=== PATIENT | female | born 1985 | race African-American/Black ===

== ENCOUNTER → 2024-11-05 | Day surgery (SDC) | payer OTHER ==
[~2024-11-05] MED LIST: BLACK SEED OIL PO; CELEBREX200 MG PO; CYMBALTA30 MG PO; FENTANYL CITRATE/PF 100MCG/2 ML INJ ONE; GLUCAGON FOR INJ 1 MG VIAL ONE; GLYCOPYRROLATE INJ 0.2 MG/ML VIAL ONE; LEVOCETIRIZINE D5 MG PO; LIDOCAINE HCL 2% LOCAL INJ 5 ML SDV VIAL INJ ONE; MIDAZOLAM HCL 2 MG/2 ML VIAL ONE; MONTELUKAST SOD10 MG PO; MULTI-VITAMIN1 EACH PO; ONDANSETRON ODT4 MG PO; OREGANO OIL 501 EACH PO; PANTOPRAZOLE SO40 MG PO; PROPOFOL IV EMULSION 10 MG/ML 20 ML VIAL ONE; SAVELLA50 MG PO; TIZANIDINE HCL4 MG PO
[2024-11-05] MEDS: LACTATED RINGER'S 1,000 ML ONE (12:59)
[2024-11-05 14:22] VITALS: TEMP 97.6
[2024-11-05 14:50] VITALS: BP 138/78; PULSE 90; RESP 16; O2SAT 100
== END | disposition home or self-care (01) ==
LOC: OR 12:03
PROVIDERS: ATTEND Internal Medicine Gastroenterology
DX: K21.9 Gastro-esophageal reflux disease without esophagitis (principal); D12.4 Benign neoplasm of descending colon; K29.70 Gastritis, unspecified, without bleeding; K58.9 Irritable bowel syndrome, unspecified; K31.89 Other diseases of stomach and duodenum; K62.5 Hemorrhage of anus and rectum; K62.89 Other specified diseases of anus and rectum; K64.4 Residual hemorrhoidal skin tags; K64.8 Other hemorrhoids; J45.909 Unspecified asthma, uncomplicated; M79.7 Fibromyalgia; E28.2 Polycystic ovarian syndrome; F41.9 Anxiety disorder, unspecified; F32.A Depression, unspecified; F90.9 Attention-deficit hyperactivity disorder, unspecified type; F17.290 Nicotine dependence, other tobacco product, uncomplicated; Z79.899 Other long term (current) drug therapy
CPT/HCPCS: 43239; 45384; 81025; J1610; J2003; J2250; J2704; J3010; J7121; 45378